=== PATIENT | female | born 1985 | race Hispanic/Latino ===

== ENCOUNTER 2016-10-24 09:08 | Inpatient (IN) ==
[2016-10-24] MEDS ORDERED: KEFZOL 1 GM/D5W 1 GM/50 ML IVPB IV PRN (09:30)
[2016-10-24] MEDS ORDERED: REGLAN PO ONE (09:30)
[2016-10-24] MEDS ORDERED: PEPCID PO ONE (09:30)
[2016-10-24] MEDS ORDERED: LR 500 ML IV ONE (09:30)
[2016-10-24] MEDS: LR 1,000 ML IV SCH ×2 (10:56→12:03)
[2016-10-24 11:23] LABS: URINE SOURCE VOIDED
[2016-10-24 11:23] LABS: MANUAL DIFF NEEDED? NO
[2016-10-24 11:54] LABS: BASO% 0.4 % (0.0-0.8); EOS# 0.05 X1000 (0.0-0.7); EOS% 0.7 % (0.0-10.0); HEMATOCRIT 34.6 % (37.0-47.0); HEMOGLOBIN 11.4 g/dL (12.0-16.0); IMM GRAN# 0.02 X1000 (0.0-0.04); IMM GRAN% 0.3 % (0.0-0.5); LYMPH# 1.68 X1000 (1.2-3.4); MCH 25.4 PG (27-31); MCHC 32.9 g/dL (33-37); MCV 77.2 FL (81-99); MONO# 0.49 X1000 (0.11-0.59); MPV 11.5 FL (7.4-10.4); NEUT% 67.6 % (42.2-75.2); PLT 218 X1000 (130-400); RBC 4.48 XMIL (4.2-5.4)
[2016-10-24 11:58] LABS: BILIRUBIN URINE 1+ (NEGATIVE); BLOOD URINE 1+ (NEGATIVE); CLARITY CLEAR (CLEAR); COLOR AMBER; GLUCOSE URINE NEGATIVE (NEGATIVE); LEUKOCYTES URINE 2+ (NEGATIVE); NITRITE URINE NEGATIVE (NEGATIVE); PH URINE 6.5; PROTEIN URINE 1+(30 mg/dL) mg/dL (NEGATIVE); UROBILINOGEN URINE 4+(12 mg/dL)
[2016-10-24] MEDS ORDERED: BENADRYL IV PRN (11:59)
[2016-10-24] MEDS ORDERED: ZOFRAN ODT PO PRN (11:59)
[2016-10-24] MEDS ORDERED: ZOFRAN IV PRN ×2 (11:59)
[2016-10-24] MEDS ORDERED: NARCAN INJ PRN (11:59)
[2016-10-24] MEDS ORDERED: MORPHINE IV PRN (12:00)
[2016-10-24] MEDS ORDERED: BICITRA PO ONE (12:15)
[2016-10-24] MEDS ORDERED: SODIUM CHLORIDE 0.9% INJ ONE (12:15)
[2016-10-24] MEDS ORDERED: PEPCID IV ONE (12:15)
== END 2016-10-24 14:00 | disposition home or self-care (01) ==
LOC: P.LD 09:08
PROVIDERS: ADMIT Student in an Organized Health Care Education/Training Program; ATTEND Student in an Organized Health Care Education/Training Program